=== PATIENT | female | born 1980 | race Caucasian/White ===

== ENCOUNTER 2021-09-11 14:04 | Outpatient (CLI) | payer MEDICAID ==
--- NOTE | 2021-09-11 14:33 | XRAY Report ---
PROCEDURE: Shoulder 3 View RT INDICATIONS: RIGHT SHOULDER IMPINGEMENT TECHNIQUE: 3 views of the shoulder were acquired. COMPARISON: None. FINDINGS: BONES: No acute, displaced fracture. Moderate AC joint joint space loss with osteophytosis. SOFT TISSUES: No focal abnormality or appreciable pneumothorax. IMPRESSION: 1.No acute osseous abnormality. Reviewed by: Chan Cho MD on 09/11/2021 2:32 PM [facility] Approved by: Chan Cho MD on 09/11/2021 2:32 PM [facility] Station ID: [id number]
== END 2021-09-11 23:59 | disposition home or self-care (01) ==
LOC: DI.S 14:04
PROVIDERS: ATTEND Physician Assistant
DX: M75.41 Impingement syndrome of right shoulder (principal)

== ENCOUNTER 2022-11-09 15:29 | Outpatient (CLI) | payer MEDICAID ==
--- NOTE | 2022-11-09 16:59 | XRAY Report ---
PROCEDURE: Shoulder 3 View RT INDICATIONS: RIGHT SHOULDER PAIN TECHNIQUE: 4 views of the shoulder were acquired. COMPARISON: 09/11/2021 FINDINGS: Bones: No fractures or dislocations. No suspicious bony lesions. Moderate AC joint hypertrophy rede monstrated. At least mild degenerative changes of the glenohumeral joint also present. Soft tissues: No suspicious soft tissue calcifications. IMPRESSION: No acute bony abnormality. Degenerative changes of the acromioclavicular and glenohumeral joints. If symptoms persist, follow-up radiographs and/or CT or MRI may be helpful for further evaluation. Reviewed by: Roberto Keith MD on 11/09/2022 4:58 PM PDT Approved by: Roberto Keith MD on 11/09/2022 4:58 PM PDT Station ID: [id number]
== END 2022-11-09 15:30 | disposition home or self-care (01) ==
LOC: DI.WOS 15:29
PROVIDERS: ATTEND Physician Assistant Surgical
DX: M19.011 Primary osteoarthritis, right shoulder (principal)

== ENCOUNTER 2023-01-24 08:56 | Outpatient (CLI) | payer MEDICAID ==
--- NOTE | 2023-01-26 10:13 | Mammography Report ---
BILATERAL FIRST EVER DIGITAL SCREENING MAMMOGRAM 3D/2D WITH EXAGGERATED CC: 01/24/2023 CLINICAL: Baseline exam. Routine screening. No prior exams were available for comparison. There are scattered areas of fibroglandular density in both breasts (category b / 25%-50% glandular t issue). No significant masses, calcifications, or other findings are seen in either breast. IMPRESSION: NEGATIVE There is no mammographic evidence of malignancy. A 1 year screening mammogram is recommended. Based on the Tyrer Cuzick model (a risk assessment model) the patients lifetime risk is 10.5% and he r 10 year risk is 1.4%. According to the ACR, ACS, and NCCN guidelines, an annual breast MRI exam delma ng with mammogram is recommended if the patients lifetime risk is 20% or greater. This exam was interpreted at Station ID: [id number]. NOTE: For mammograms, a report in lay terms will be sent to the patient. Approximately 15% of breast malignancies will not be visualized mammographically. In the management of a palpable breast mass, a negative mammogram must not discourage biopsy of a clinically suspicious lesion. Electronically Signed By: Roland woodward/pastora:01/24/2023 19:05:00 letter sent: No_Letter ACR BI-RADS Category 1: Negative 3341F PARENCHYMAL PATTERN: (A) - The breast(s) demonstrate(s) scattered fibroglandular densities. BI-RADS CATEGORY: (1) - 1 Mammogram 20240125 1 year screening LATERALITY: (B)
== END 2023-01-24 08:57 | disposition home or self-care (01) ==
LOC: DI.S 08:56
PROVIDERS: ATTEND Nurse Practitioner
DX: Z12.31 Encounter for screening mammogram for malignant neoplasm of breast (principal)

== ENCOUNTER 2023-08-15 08:00 | Outpatient (CLI) | payer MEDICAID ==
--- NOTE | 2023-08-15 10:33 | XRAY Report ---
PROCEDURE: Chest 2V INDICATIONS: ACUTE BRONCHITIS TECHNIQUE: 2 views of the chest were acquired. COMPARISON: None. FINDINGS: Surgical changes and devices: None. Lungs and pleura: No pleural effusions or pneumothorax. Lab scarring suggested of the lung apices bi laterally. Otherwise lungs are clear. Mediastinum: Mediastinal contours appear normal. Heart size is normal. Bones and chest wall: No suspicious bony lesions. Overlying soft tissues appear unremarkable. IMPRESSION: 1. Suggestion of mild scarring of the bilateral lung apices 2. No acute cardiopulmonary abnormality seen Reviewed by: Jossue Samaniego MD on 08/15/2023 10:32 AM PST Approved by: Jossue Samaniego MD on 08/15/2023 10:32 AM PST Station ID: [id number]
== END 2023-08-15 23:59 | disposition home or self-care (01) ==
LOC: DI.S 08:00
PROVIDERS: ATTEND Emergency Medicine
DX: J20.9 Acute bronchitis, unspecified (principal)